=== PATIENT | female | born 1985 | race Caucasian/White ===

== ENCOUNTER → 2017-09-06 10:58 | Outpatient (CLI) | payer OTHER, SELFPAY ==
[2017-09-06 11:04] LABS: Adenovirus,PCR Not Detected (NotDetected); Bordetella Pertussis Not Detected (NotDetected); Chlamydophila Pneumoniae, PCR Not Detected (NotDetected); Coronavirus 229E Not Detected (NotDetected); Coronavirus NL63 Not Detected (NotDetected); Coronavirus OC43 Not Detected (NotDetected); Coronovirus HKU1,PCR Not Detected (NotDetected); Human Metapneumovirus Not Detected (NotDetected); Influenza A, PCR Not Detected (NotDetected); Influenza AH1, 2009 Not Detected (NotDetected); Influenza AH1, PCR Not Detected (NotDetected); Influenza AH3,PCR Not Detected (NotDetected); Influenza B, PCR Not Detected (NotDetected); Mycoplasma Pneumoniae, PCR Not Detected (NotDected); Parainfluenza 1, PCR Not Detected (NotDetected); Parainfluenza 2, PCR Not Detected (NotDetected); Parainfluenza 3, PCR Not Detected (NotDetected); Parainfluenza 4, PCR Not Detected (NotDetected); Respiratory Syncytial Virus Not Detected (NotDetected); Rhinovirus/Enterovirus Not Detected (NotDetected)
== END ==
PROVIDERS: PCP Nurse Practitioner Family; Visit Provider Nurse Practitioner Family
DX: R05 Cough (principal); Z20.828 Contact with and (suspected) exposure to other viral communicable diseases
CPT/HCPCS: 87486; 87581; 87633; 87798

== ENCOUNTER → 2022-11-16 11:32 | Outpatient (CLI) | payer BC, SELFPAY ==
--- NOTE | 2022-11-16 11:44 | XR_ITS ---
FINAL REPORT CLINICAL HISTORY: wrist pain FINDINGS: Left wrist Three views were obtained. There is no acute fracture or dislocation. The joint spaces appear normal. No soft tissue abnormality is identified. IMPRESSION: No acute process. Reviewed, Interpreted and Dictated by Vish Villeda MD Transcribed by Estelle Hui Authenticated and [facility]
== END ==
PROVIDERS: PCP Physician Assistant; Visit Provider Orthopaedic Surgery
DX: M25.532 Pain in left wrist (principal)
CPT/HCPCS: 73110

== ENCOUNTER 2023-01-18 19:52 | Emergency (ER) | payer BC, SELFPAY ==
[2023-01-18 19:52] VITALS: BP 157/98; PULSE 117; RESP 16; TEMP 36.9; O2SAT 96; BMI 29.5
--- NOTE | 2023-01-18 19:55 | PC.NURSE ---
seizure pads placed on pt bed at this this time
--- NOTE | 2023-01-18 19:57 | CT_ITS ---
PROCEDURE INFORMATION: Exam: CT Head Without Contrast Exam date and time: 01/18/2023 8:14 PM Age: 37 years old Clinical indication: Other: Seziures TECHNIQUE: Imaging protocol: Computed tomography of the head without contrast. Radiation optimization: All CT scans at this facility use at least one of these dose optimization techniques: automated exposure control; mA and/or kV adjustment per patient size (includes targeted exams where dose is matched to clinical indication); or iterative reconstruction. REPORTING DATA: Count of CT and Cardiac NM exams in prior 12 months: This patient has received 0 known CTs and 0 known cardiac nuclear medicine studies in the 12 months prior to the current study. COMPARISON: CT HEAD/BRAIN WO CON 10/03/2019 1:32 PM FINDINGS: Brain: Normal. No hemorrhage. Unremarkable white matter. No mass effect. Cerebral ventricles: There is stable mild ventriculomegaly. Paranasal sinuses: Visualized sinuses are unremarkable. No fluid levels. Mastoid air cells: Visualized mastoid air cells are well aerated. Bones/joints: Unremarkable. No acute fracture. Soft tissues: Unremarkable. IMPRESSION: Stable mild ventriculomegaly. No acute intracranial abnormality
[2023-01-18 20:00] VITALS: BP 158/95; PULSE 120; RESP 22; O2SAT 90
--- NOTE | 2023-01-18 20:04 | PC.NURSE ---
patient gone to RAD at this time.
--- NOTE | 2023-01-18 20:04 | [facility].EDSEIZ ---
Discharge Plan Disposition Patient Disposition: Home, Self-Care Prescriptions Prescriptions: New levetiracetam [Keppra] 500 mg tablet 500 mg PO BID 14 Days Qty: 28 0RF Referrals Follow up/Referrals: Fiona Simons MD [Staff Physician] - See instructions Clifford Bass [Primary Care Provider] - See instructions Clinical Impressions Clinical Impression: Generalized seizure Instructions Patient Instructions: DI for Seizure Disorder -- Adult Discharge ED Provider: Nancy (ED)Chito Seizures HPI General Chief Complaint: Seizure Stated Complaint: seizure Time Seen by Provider: 01/18/23 20:00 Mode of Arrival: EMS Source of Information: Patient, EMS and Medical Record Limitations: No Limitations Description of Symptoms (Recalled from ER Triage Doc. by RN): EMS called out for seziures. pt have 3 witnessed seizures prior to arrival. pt states she has a history of seziures but doesn't take any meds and hasn't have one in months History of Present Illness HPI Narrative: pt with several sz today with hx of sz in past but is not being treated - no fever/rash or trauma - no reported drugs complaint: seizure Onset (ago): hour(s) Description of Episode: tonic-clonic movement Witnessed: yes - by other (er staff) Trauma: No Seizure History: known seizure disorder Place: home Associated symptoms: denies other symptoms Related Data Previous Rx's Medication Instructions Recorded levetiracetam 500 mg tablet 500 mg PO BID 2 weeks #28 tabs 01/18/23 (Keppra) Allergies Allergy/AdvReac Type Severity Reaction Status Date / Time cortisone AdvReac Intermediate Verified 11/16/22 13:14 [facility] Disclaimer: The information contained in this section may have been updated after the patient was seen, as this information can be updated by other users. Medical History Carpal tunnel syndrome Chronic back pain Surgical History H/O wrist surgery Tubal ligation status Social History Smoking Status: Current every day smoker tobacco type: cigarettes packs per day: 1 second hand exposure: Yes alcohol intake: never current occupational status: other Travel in the last 8 weeks: None housing: house ROS Obtained: Yes All systems reviewed & no additional complaints except as documented Physical Exam General General appearance: alert Head Head exam: normocephalic Eye Eye exam: Present PERRL and EOMI; Absent nystagmus ENT ENT exam: Present mucous membranes moist and other (no evid of tongue biting ) Neck Neck exam: Absent trachea midline Respiratory Respiratory exam: Absent respiratory distress Cardiovascular Cardiovascular exam: Present regular rate Abdominal Exam Abdominal exam: Present soft Extremities Exam Extremities exam: Present full ROM Neurological Exam Neurological exam: Present alert, oriented X3 and CN II-XII intact; Absent motor sensory deficit Psychiatric Psychiatric exam: Present normal affect Skin Skin exam: Absent rash Medical Decision Making Medical Records Medical records reviewed: Yes I reviewed the patient's medical records. [place] Inquiry Pt receiving controlled substance: No Vital Signs: 01/18/23 19:52 01/18/23 20:00 Temperature 98.4 F Temperature Source Oral Pulse Rate 120 H Pulse Rate [Right] 117 H Respiratory Rate 16 22 Blood Pressure 158/95 H Blood Pressure [Right Arm] 157/98 H Blood Pressure Mean [Right Arm] 117 02 Sat by Pulse Oximetry 96 90 L Lab Data Lab results reviewed: Yes I reviewed the patient's lab results. Lab Results 01/18/23 19:56: WBC 12.1 H, RBC 4.43, Hgb 14.2, Hct 43.2, MCV 97.5, MCH 32.0 H, MCHC 32.8, RDW 12.5, Plt Count 313, MPV 7.7, Neut % (Auto) 67.9, Lymph % (Auto) 24.8, [place] % (Auto) 4.7, Eos % (Auto) 1.8, Baso % (Auto) 0.7, Neut # (Auto) 8.2 H, Lymph # (Auto)
--- NOTE | 2023-01-18 20:10 | PC.NURSE ---
Serg called from CT and stated the patient was actively seizing and has pulled out her IV. this nurse, Carolina, RN, Victor Hugo, RN, Annita responded. New IV established and 1mg IV ativan administered per verbal order from Dr. Cruz. on assessment pt snoring but able to maintain patent airway with a O2 sat of 98% at this time.
[2023-01-18 20:20] LABS: Basophils # 0.1 K/mm3 (0-0.2); Basophils % 0.7 % (0.1-2.0); Eosinophils # 0.2 K/mm3 (0.0-0.4); Eosinophils % 1.8 % (0.1-12.0); Hematocrit 43.2 % (37.0-47.0); Hemoglobin 14.2 g/dL (12.2-16.2); Lymphocytes % 24.8 % (10-50); Mean Corpuscular HGB Conc 32.8 g/dL (31.8-35.4); Mean Corpuscular Volume 97.5 fl (81-99); Mean Platelet Volume 7.7 fl (7.4-10.4); Monocytes # 0.6 K/mm3 (0.1-1.0); Monocytes % 4.7 % (1.7-9.3); Neutrophils # 8.2 K/mm3 (1.8-7.8); Neutrophils % 67.9 % (37.0-80.0); Platelet Count 313 K/mm3 (142-424); Red Blood Count 4.43 M/mm3 (4.20-5.40); Red Cell Distribution Width 12.5 % (11.5-17.5); White Blood Count 12.1 K/mm3 (4.8-10.8)
[2023-01-18 20:26] LABS: Alanine Aminotransferase 32 U/L (12-78); Albumin Level 4.3 g/dl (3.5-5.0); Albumin/Globulin Ratio 1.6 (1.1-1.8); Alkaline Phosphatase 58 U/L (38-126); Anion Gap 16.1 mEq/L (5-15); Aspartate Amino Transferase 43 U/L (14-36); Bilirubin,Total 0.2 mg/dl (0.2-1.3); Blood Urea Nitrogen 12 mg/dl (7-17); Calcium 8.7 mg/dl (8.4-10.2); Carbon Dioxide 21 mmol/L (22.0-30.0); Chloride 105 mmol/L (98-107); Creatinine Clearance Estimated 140 mL/min (50-200); Estimated Glomerular Filt Rate 113 ml/min (>60); GFR (African American) 137 ML/MIN (>60); Globulin 2.7 g/dL (1.3-3.2); Glucose 152 mg/dl (74-100); Potassium 4.1 mmoL/L (3.5-5.1); Sodium 138 mmol/L (136-145)
--- NOTE | 2023-01-18 20:26 | PC.NURSE ---
patient back in room at this time.
[2023-01-18 20:31] LABS: C-Reactive Protein 1.2 mg/L (0-4)
[2023-01-18 20:42] LABS: Procalcitonin < 0.030 ng/mL (0.0-2.0)
[2023-01-18 20:54] VITALS: BP 151/91; PULSE 124; RESP 19; TEMP 36.9; O2SAT 96
[2023-01-18 21:00] LABS: Erythrocyte Sedimentation Rate 11 mm/hr (0-20)
== END 2023-01-18 21:00 | disposition home or self-care (01) ==
PROVIDERS: Emergency Provider Emergency Medicine; PCP Internal Medicine
DX: R56.9 Unspecified convulsions (principal); F17.210 Nicotine dependence, cigarettes, uncomplicated
CPT/HCPCS: 70450; 80053; 84145; 85025; 85651; 86140; 96361; 96374; 99284; 99285; J1953